=== PATIENT | male | born 1980 | race Caucasian/White ===

== ENCOUNTER 2023-04-19 00:34 | Emergency (ER) | payer SELFPAY ==
[~2023-04-19] VITALS: Ht 170.2 cm; Wt 73.0 kg
[2023-04-19 01:45] VITALS: BP 134/95
[2023-04-19] MEDS ORDERED: KETOROLAC 30MG/ML VIAL IM ONE (01:45)
[2023-04-19] MEDS ORDERED: CYCLOBENZAPRINE 10MG TABLET PO ONE (01:45)
[2023-04-19] MEDS ORDERED: IBUP-2029 MT (04:30)
== END 2023-04-19 05:11 | disposition home or self-care (01) ==
LOC: ER 00:34
DX: S20.221A Contusion of right back wall of thorax, initial encounter (principal); S16.1XXA Strain of muscle, fascia and tendon at neck level, initial encounter; V49.59XA Passenger injured in collision with other motor vehicles in traffic accident, initial encounter; Y93.89 Activity, other specified; Y92.89 Other specified places as the place of occurrence of the external cause; Y99.8 Other external cause status
CPT/HCPCS: 71101; 96372; 99283; J1885